=== PATIENT | female | born 1950 | race Caucasian/White ===

== ENCOUNTER 2025-03-19 07:34 | Outpatient (OUT) | payer OTHER, SELFPAY ==
--- OUTSIDE RECORDS SUMMARY | 2025-03-19 07:39 | XMS_ITS | Clinical Summary ---
Author Organization [facility] Address [address] [place] [address] Care Team Providers Care Brick Off Bearer Name Role Phone Thom Loredo MD Primary Care Provider [phone] Social History Tobacco Use Types Packs/Day Years Used Date Smoking Tobacco: Never Assessed Comments Unknown Sex and Gender Information Value Date Recorded Sex Assigned at Not on file Legal Sex Female 8:28 PM EDT Gender Identity Not on file Sexual Orientation Not on file Last Filed Vital Signs Vital Sign Reading Time Taken Comments Blood Pressure - - Pulse - - Temperature - - Respiratory Rate - - Oxygen Saturation - - Inhaled Oxygen Concentration - - Weight 68 kg (150 lb) 03/23/2019 12:00 PM EDT Height 162.6 cm (5' 4 ) 03/23/2019 12:00 PM EDT Body Mass Index 25.75 03/23/2019 12:00 PM EDT Plan of Treatment Not on file Care Teams Brick Off Bearer Relationship Specialty Start Date End Date Thom Loredo MD [address] [place] [id number] PCP - General Family Medicine 11/10/22
[2025-03-19 08:33] LABS: Hematocrit 45.0 % (36.0-48.0); Hemoglobin 15.0 g/dL (12.0-16.0); Immature Granulocytes Abs Auto 0.06 10^3/uL (0.00-0.03); Immature Granulocytes Pct Auto 0.4 % (0.0-0.5); Lymphocytes Absolute Auto 3.7 10^3/uL (1.2-3.8); Mean Corpuscular HGB Conc 33.3 g/dL (29.9-35.2); Mean Corpuscular Hemoglobin 30.4 pg (26.7-34.0); Mean Corpuscular Volume 91.3 fL (81.0-99.0); Platelet Count 352 10^3/uL (150-450); Red Blood Count 4.93 10^6/uL (4.20-5.40); White Blood Count 14.4 10^3/uL (4.0-11.0)
[2025-03-19 09:41] LABS: Alanine Aminotransferase 22 U/L (14-59); Albumin Globulin Ratio 0.9; Albumin Level 3.7 g/dL (3.4-5.0); Alkaline Phosphatase 109 U/L (46-116); Anion Gap 12.4; Aspartate Amino Transferase 14 U/L (15-37); Blood Urea Nitrogen 30.0 mg/dL (7.0-18.0); Calcium 9.4 mg/dL (8.5-10.1); Carbon Dioxide 26.5 mmol/L (21.0-32.0); Chloride 107 mmol/L (98-107); Cholesterol 191 mg/dL (<=200); Estimated GFR (African America 58 (>=60 mL/min/1.73m^2); Estimated GFR (Non-African Ame 48 (>=60 mL/min/1.73m^2); Globulin 4.3 g/dL; Glucose 102 mg/dL (74-106); HDL Cholesterol 68 mg/dL (40-60); Potassium 3.9 mmol/L (3.5-5.1); Sodium 142 mmol/L (136-145); Total Protein 8.0 g/dL (6.4-8.2); Triglycerides 75 mg/dL (<=150); VLDL CHOLESTEROL 15.0 mg/dL
== END 2025-03-19 07:35 | disposition home or self-care (01) ==
LOC: RAD 07:37
PROVIDERS: PCP Nurse Practitioner Family; Visit Provider Nurse Practitioner Family
DX: Z00.00 Encounter for general adult medical examination without abnormal findings (principal); Z78.0 Asymptomatic menopausal state; Z13.820 Encounter for screening for osteoporosis; Z79.899 Other long term (current) drug therapy; R03.0 Elevated blood-pressure reading, without diagnosis of hypertension
CPT/HCPCS: 36415; 77080; 80053; 80061; 85025

== ENCOUNTER 2025-03-28 13:16 | Outpatient (OUT) | payer OTHER, SELFPAY ==
--- NOTE | 2025-03-28 14:15 | P.CN_ITS ---
Consult Note: HPI Data of Consult Patient: known to practice within the last 3 years Requesting Physician: Germaine Akhtar NP Primary Care Provider: KARO WILSON Consult Narrative Reason for consult: new pt low back pain Narrative: Heidi walters pleasant 74 year old female presents for evaluation of chronic moderate to severe low back pain >5 years without injury/cause. Patient noting 100% pain in low back, 0% in legs. Pain today 4/10 increasing to 10/10 at times with standing, walking. Pain significantly improved with sitting. Has been engaged in provider guided HEP and yoga daily for at least 15 minutes greater than 6 weeks without improvement. No recent imaging. Has failed oral steroids, tylenol, ibuprofen. cc:: CC: Germaine Akhtar NP Review of Systems ROS Musculoskeletal Reports: back pain; Denies: extremity pain Meds Home Medications and Allergies Home Medications ?Medication ?Instructions ?Recorded ?Confirmed ?Type baclofen 5 mg tablet 5 mg PO BID 03/28/25 5 History Allergies Allergy/AdvReac Type Severity Reaction Status Date / Time codeine Allergy Unknown Vomiting Verified 03/28/25 14:33 Exam Constitutional Documenting provider has reviewed patient's vital signs: yes Common normals: no apparent distress, oriented x3, healthy appearing, alert and well nourished General appearance: cooperative HENMT Common normals: normocephalic, hearing grossly normal bilaterally and moist oral mucous membranes Head and scalp: normocephalic Eye Common normals: PERRL Pupil: PERRL Neck & C-Spine Common normals: full ROM General: normal visual inspection Chest Common normals: inspection of chest normal Respiratory Common normals: normal respiratory effort, no retractions and no use of accessory muscles Back & Pelvis Lumbar spine/lower back: ROM limited, pain with ROM, lumbar spinal tenderness and straight leg raise negative bilaterally Sacroiliac joints: SI joint(s) abnormal Other: left > right positive maryse(patricks), gaenslens, thigh thrust, compression test strength 5/5 in BLE Neuro Common normals: oriented x3 Sensorium/orientation: alert Psych Common normals: mental status grossly normal, thought process normal, cooperative, affect normal, speech normal and activity/motor behavior normal Speech: normal speech Thought process: normal thought process Results Additional Findings Additional findings: If on a controlled substance or opioids, I have checked an [place] report on this patient and there are no aberrancies noted in the prescribing history.??If on a controlled substance or opioid a drug screen was completed and reviewed within the last year, and if there has not been a drug screen completed we ordered one today to monitor higher risk, state monitored pain medication use. As part of providing excellent, safe, comprehensive care, the following was completed at our patient's visit: 1. A medication reconciliation and review to ensure accurate knowledge of current/active medications, including asking our patients to inform us about any [id number]-[id number] medications or herbal remedies/nutritional supplements/alternative remedies. 2. A review to specifically ensure our patients have had annual screening for screening for depression, screening for tobacco use, and screening for unhealthy alcohol use. For concerning screenings had a discussion with the patient, provided patient education, and recommended follow-up with primary care provider when appropriate. If patient noted with a risk of falling, they received education on strength, gait, and balance training to prevent future risk of falling. Portions of this note may have been carried over from the previous visit and updated as appropriate. Please note this office utilizes paper charting in addition to the electronic medical record. A list of current medications, vitals, and PMH is available th [facility] as the clinical staff outside of myself do not have access to [employer] charting during the clinic day operations. As part of providing quality comprehensive care the current medications, vitals, and PMH were reviewed in the paper chart. 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 Patient has completed >6 weeks of guided home exercise program and/or formal physical therapy program without relief of their symptoms.? The Oswestry Disability Index was completed, and the patient scored a 32%.? Update lumbar xray with flexion to assess low back pain and SIJ pain update lumbar MRI without contrast to assess lumbar DDD, lumbar stenosis with NC start baclofen 5-10mg BID PRN pain/spasms continue HEP as tolerated f/u to review imaging
== END 2025-03-28 13:17 | disposition home or self-care (01) ==
LOC: PM 13:17
PROVIDERS: PCP Nurse Practitioner Family; Visit Provider Nurse Practitioner
DX: M48.062 Spinal stenosis, lumbar region with neurogenic claudication (principal); M46.1 Sacroiliitis, not elsewhere classified; M47.816 Spondylosis without myelopathy or radiculopathy, lumbar region; M79.18 Myalgia, other site; M51.360 Other intervertebral disc degeneration, lumbar region with discogenic back pain only
CPT/HCPCS: 72114; G0463

== ENCOUNTER 2025-03-28 14:27 | Outpatient (OUT) | payer OTHER, SELFPAY ==
--- OUTSIDE RECORDS SUMMARY | 2025-03-28 14:31 | XMS_ITS | Clinical Summary ---
Author Organization [facility] Address [address] [place] [address] Care Team Providers Care Shoe Repairman Name Role Phone Thom Loredo MD Primary Care Provider [phone] Social History Tobacco Use Types Packs/Day Years [...] of Treatment Not on file Care Teams Shoe Repairman Relationship Specialty Start Date End Date Thom Loredo MD [address] [place] [id number] PCP - General Family Medicine 11/10/22
--- NOTE | 2025-03-28 14:34 | XR_ITS ---
The [place] [id number] Patient Name: SANTA CHAUDHARI MRN: [id number] date: 1950 Sex: F Assigned Patient Location: [facility] Current Patient Location: [facility] Accession/Order Number: [id number] Exam Date: 03/28/2025 14:44 Report Date: 03/28/2025 17:05 At the request of: JHONATAN MCNEILL NP Procedure: XR lumbar spine 6V w bending XR lumbar spine 6V w bending 03/28/2025 2:53 PM SIGNS AND SYMPTOMS: Lumbar Degenerative Disc Disease, Sacroiliitis, Spondylosis PROTOCOLS: Frontal, lateral, and oblique radiographs of the lumbar spine COMPARISON: None FINDINGS: There is a dextro convex curvature of the lumbar spine. There is moderate severe disc height loss at L3-L4 and L4-5. There is severe disc height loss at L5-S1. There is anterior osteophyte formation. There is facet hypertrophy throughout. There is 7 mm of anterolisthesis of L4 upon L5. Flexion and extension view show no pathologic movement. Degenerative changes are noted in the sacroiliac joints, right greater than left. Atherosclerotic changes are noted in the abdominal aorta. XR/XR lumbar spine 6V w bending IMPRESSION: No fracture. There is 7 mm of anterolisthesis of L4 upon L5 without pathologic movement on flexion or extension. Severe multilevel degenerative change is noted in the lumbar spine as above. Impression dictated by: Miguel Angel Hyde M.D. 03/28/2025 5:05 PM Dictation Location: [place] [address] Electronically authenticated by: [id number] Y Date: 03/28/2025 17:05
== END 2025-03-28 14:28 | disposition home or self-care (01) ==
LOC: RAD 14:29
PROVIDERS: PCP Nurse Practitioner Family; Visit Provider Nurse Practitioner
DX: M51.360 Other intervertebral disc degeneration, lumbar region with discogenic back pain only (principal); M46.1 Sacroiliitis, not elsewhere classified; M47.816 Spondylosis without myelopathy or radiculopathy, lumbar region
CPT/HCPCS: 72114

== ENCOUNTER 2025-04-03 14:13 | Outpatient (OUT) | payer OTHER, SELFPAY ==
--- NOTE | 2025-04-03 14:17 | MR_ITS ---
The [address] [address] Patient Name: SANTA CHAUDHARI MRN: [id number] date: 1950 Sex: F Assigned Patient Location: MRI Current Patient Location: MRI Accession/Order Number: [id number] Exam Date: 04/03/2025 14:30 Report Date: 04/03/2025 16:05 At the request of: JHONATAN MCNEILL NP Procedure: MR lumbar spine wo con MR lumbar spine wo con 04/03/2025 3:01 PM SIGNS AND SYMPTOMS: Neurogenic claudication, low back pain radiating into lower extremities PROTOCOL: Multiplanar multisequence MR images of the lumbar spine without IV contrast COMPARISON: 03/28/2025 FINDINGS: Facet hypertrophy contributes to 8 mm of anterolisthesis of L4 upon L5. The bones are otherwise in anatomic alignment. There is preservation of vertebral body heights. There is moderate to severe disc height loss throughout the lumbar spine. There is Modic type I endplate edema at L4-L5 and L3-L4. There is Modic type II fatty endplate degenerative change throughout otherwise. Schmorl's nodes are noted in the endplates at T11, T12, L1, L2-L3, and L4. The conus terminates at the superior endplate of the L1 vertebral body level. No epidural or paraspinous fluid collection is appreciated. There is a simple cyst in the left renal cortex requiring no further follow-up. Stones are present in the gallbladder lumen. At T12-L1: There is a broad-based disc bulge with a right foraminal disc protrusion and endplate osteophyte formation. There is facet hypertrophy and ligament flavum thickening. There is moderate spinal canal narrowing with severe right and moderate left neural foraminal narrowing. At L1-L2: There is a broad-based disc bulge with facet hypertrophy and ligamentum flavum thickening contributing to moderate to severe spinal canal stenosis. There is mild to moderate bilateral neural foraminal narrowing. At L2-L3: There is a circumferential disc bulge with facet hypertrophy and ligamentum flavum thickening. There is moderate spinal canal narrowing with moderate left and mild right neural foraminal narrowing. At L3-L4: There is a circumferential disc bulge with facet hypertrophy and ligamentum flavum thickening and stranding to moderate to severe spinal canal narrowing. There is moderate severe left and moderate right neural foraminal narrowing. At L4-L5: There is 8 mm of anterolisthesis of L4 upon L5 secondary to facet hypertrophy. There is ligamentum flavum thickening. There is a circumferential disc bulge with endplate osteophyte formation. There is severe spinal canal stenosis with mass effect on the traversing nerve roots of the cauda equina. There is moderate to severe bilateral neural foraminal narrowing. At L5-S1: There is a broad-based disc bulge with facet hypertrophy. There is partial sacralization of the right L5 transverse process with the sacral ala with pseudoarticulation contributing to severe right S1 foraminal stenosis and mass effect on the right S1 nerve roots. There is mild spinal canal narrowing with mild left neural foraminal narrowing and moderate to severe right neural foraminal narrowing. MR/MR lumbar spine wo con IMPRESSION: At L4-L5: There is 8 mm of anterolisthesis of L4 upon L5 secondary to facet hypertrophy. There is ligamentum flavum thickening. There is a circumferential disc bulge with endplate osteophyte formation. There is severe spinal canal stenosis with mass effect on the traversing nerve roots of the cauda equina. There is moderate to severe bilateral neural foraminal narrowing. At L5-S1: There is a broad-based disc bulge with facet hypertrophy. There is partial sacralization of the right L5 transverse process with the sacral ala with pseudoarticulation contributing to severe right S1 foraminal stenosis and mass effect on the right S1 nerve roots. There is mild spinal canal narrowing with mild left neural foraminal narrowing and moderate to severe right neural foraminal narrowing. Additional significant degenerative changes are noted as described above. Impression dictated by: Miguel Angel Hyde M.D. 04/03/2025 4:05 PM Dictation Location: [place] [address] Electronically authenticated by: [id number] Y Date: 04/03/2025 16:05
== END 2025-04-03 14:14 | disposition home or self-care (01) ==
LOC: MRI 14:13
PROVIDERS: PCP Nurse Practitioner Family; Visit Provider Nurse Practitioner
DX: M48.062 Spinal stenosis, lumbar region with neurogenic claudication (principal); M51.360 Other intervertebral disc degeneration, lumbar region with discogenic back pain only
CPT/HCPCS: 72148

== ENCOUNTER 2025-04-12 14:08 | Outpatient (OUT) | payer OTHER, SELFPAY ==
--- NOTE | 2025-04-12 14:21 | PM.CN ---
Consult Note: HPI Data of Consult Patient: known to practice within the last 3 years Consult date: 04/12/25 Requesting Physician: Germaine Akhtar NP Primary Care Provider: KARO WILSON Consult Narrative Reason for consult: low back pain Narrative: Heidi walters pleasant 74 year old female presents for evaluation of chronic moderate to severe low back pain >5 years without injury/cause. Patient noting 100% pain in low back, 0% in legs. Pain today 5/10 sharp increasing to 10/10 at times with standing, walking. Pain significantly improved with sitting. Has been engaged in provider guided HEP and yoga daily for at least 15 minutes greater than 6 weeks without improvement. Has failed oral steroids, tylenol, ibuprofen. notes relief with baclofen, has been taking 20mg HS without side effects. recently underwent lumbar MRI with results below. cc:: CC: Germaine Akhtar NP Review of Systems ROS Musculoskeletal Reports: back pain; Denies: extremity pain Meds Home Medications and Allergies Home Medications ?Medication ?Instructions ?Recorded ?Confirmed ?Type baclofen 5 mg tablet 5 mg PO BID 03/28/25 03/28/25 History Allergies Allergy/AdvReac Type Severity Reaction Status Date / Time codeine Allergy Unknown Vomiting Verified 03/28/25 14:33 Exam Constitutional Documenting provider has reviewed patient's vital signs: yes Common normals: no apparent distress, oriented x3, healthy appearing, alert and well nourished General appearance: cooperative HENPR Common normals: normocephalic, hearing grossly normal bilaterally and moist oral mucous membranes Head and scalp: normocephalic Eye Common normals: PERRL Pupil: PERRL Neck & C-Spine Common normals: full ROM General: normal visual inspection Chest Common normals: inspection of chest normal Respiratory Common normals: normal respiratory effort, no retractions and no use of accessory muscles Back & Pelvis Lumbar spine/lower back: ROM limited, pain with ROM, lumbar spinal tenderness and straight leg raise negative bilaterally Sacroiliac joints: SI joint(s) abnormal Other: left > right positive maryse(patricks), gaenslens, thigh thrust, compression test strength 5/5 in BLE sensation intact BLE Neuro Common normals: oriented x3 Sensorium/orientation: alert Psych Common normals: mental status grossly normal, thought process normal, cooperative, affect normal, speech normal and activity/motor behavior normal Speech: normal speech Thought process: normal thought process Results Imaging lumbar mri: Attestation: I have reviewed the pertinent imaging results. Additional Findings Additional findings: Facet hypertrophy contributes to 8 mm of anterolisthesis of L4 upon L5. The bones are otherwise in anatomic alignment. There is preservation of vertebral body heights. There is moderate to severe disc height loss throughout the lumbar spine. There is Modic type I endplate edema at L4-L5 and L3-L4. There is Modic type II fatty endplate degenerative change throughout otherwise. Schmorl's nodes are noted in the endplates at T11, T12, L1, L2-L3, and L4. The conus terminates at the superior endplate of the L1 vertebral body level. No epidural or paraspinous fluid collection is appreciated. There is a simple cyst in the left renal cortex requiring no further follow-up. Stones are present in the gallbladder lumen. At T12-L1: There is a broad-based disc bulge with a right foraminal disc protrusion and endplate osteophyte formation. There is facet hypertrophy and ligament flavum thickening. There is moderate spinal canal narrowing with severe right and moderate left neural foraminal narrowing. At L1-L2: There is a broad-based disc bulge with facet hypertrophy and ligamentum flavum thickening contributing to moderate to severe spinal canal stenosis. There is mild to moderate bilateral neural foraminal narrowing. At L2-L3: There is a circumferential disc bulge with facet hypertrophy and ligamentum flavum thickening. There is moderate spinal canal narrowing with moderate left and mild right neural foraminal narrowing. At L3-L4: There is a circumferential disc bulge with facet hypertrophy and ligamentum flavum thickening and stranding to moderate to severe spinal canal narrowing. There is moderate severe left and moderate right neural foraminal narrowing. At L4-L5: There is 8 mm of anterolisthesis of L4 upon L5 secondary to facet hypertrophy. There is ligamentum flavum thickening. There is a circumferential disc bulge with endplate osteophyte formation. There is severe spinal canal stenosis with mass effect on the traversing nerve roots of the cauda equina. There is moderate to severe bilateral neural foraminal narrowing. At L5-S1: There is a broad-based disc bulge with facet hypertrophy. There is partial sacralization of the right L5 transverse process with the sacral ala with pseudoarticulation contributing to severe right S1 foraminal stenosis and mass effect on the right S1 nerve roots. There is mild spinal canal narrowing with mild left neural foraminal narrowing and moderate to severe right neural foraminal narrowing. 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 Patient has completed >6 weeks of guided home exercise program and/or formal physical therapy program without relief of their symptoms.? The Oswestry Disability Index was completed, and the patient scored a 24%.? lumbar MRI and xray reviewed with pt. I expressed my concerns that if we proceed with interventional therapy we may worsen her pain/functional ability as she is doing very well for her current condition. will refer to NS to establish care, will likely not be a surgical candidate at this time based on pain control/functional ability. we briefly discussed scs as an alternative to treat pain related to lumbar stenosis as well as ddd and vertebrogenic pain but this is not recommended at this time. pt would like to trial medication therapy further at this time. increase baclofen 10mg BID PRN and 20mg HS PRN pain/spasms. risks vs benefits reviewed. f/u 6 weeks to evaluate plan of care, sooner if needed
== END 2025-04-12 14:09 | disposition home or self-care (01) ==
LOC: PM 14:09
PROVIDERS: PCP Nurse Practitioner Family; Visit Provider Nurse Practitioner
DX: M51.360 Other intervertebral disc degeneration, lumbar region with discogenic back pain only (principal); M48.062 Spinal stenosis, lumbar region with neurogenic claudication; M46.1 Sacroiliitis, not elsewhere classified; M79.18 Myalgia, other site; M47.816 Spondylosis without myelopathy or radiculopathy, lumbar region
CPT/HCPCS: G0463

== ENCOUNTER 2025-05-16 11:26 | Outpatient (OUT) | payer OTHER, SELFPAY ==
--- OUTSIDE RECORDS SUMMARY | 2025-05-15 04:04 | XMS_ITS | Continuity of Care Document ---
Author Organization [facility] Address [address] [place] [address] Phone Care Team Providers Care Field Seismologist Name Role Phone Gina Raphael APRN Primary Care Provider Gina Raphael APRN Attending Provider Enrike Belle MD Attending Provider [phone] Care Teams Patient Care Team Team Status: Active Member Role/Relationship Status Dates Gina Raphael APRN SURVEILLANCE SENSOR OPERATOR-C Primary Care Provider Active Visit Care Team Team Status: Inactive Member Role/Relationship Status Dates Gina Raphael APRN SURVEILLANCE SENSOR OPERATOR-C Primary Care Provider Active Start: March 122024 End: March 12, 2025Gina Raphael APRN SURVEILLANCE SENSOR OPERATOR-CAttending ProviderActive Start: March 12, 2025 End: March 12, 2025 Visit Care Team Team Status: Active Member Role/Relationship Status Dates Gina Raphael APRN SURVEILLANCE SENSOR OPERATOR-C Primary Care Provider Active Start: March 052024 Gina Raphael APRN SURVEILLANCE SENSOR OPERATOR-CAttending ProviderActiveStart: March 19, 2025 Patient Care Team Team Status: Inactive Member Role/Relationship Status Dates Gina Raphael APRN SURVEILLANCE SENSOR OPERATOR-C Primary Care Provider Active Start: May 152024 End: May 15, 2025Denisa Candelario ProviderActiveStart: May 15, 2025 End: May 15, 2025 Chief Complaint and Reason for Visit Chief Complaint Admit Date Wellness March 12, 2025 10:57am lumbar stenosis May 15, 2025 7:59am Reason for Visit Admit Date Degenerative disc disease March 12, 2025 10:57am Elevated blood pressure reading Septembe r 2024 10:57am Medicare annual wellness visit, subseque nt March 12, 2025 10:57am Medication management March 12 10:57am Obesity (BMI 30.0-34.9) March 12 025 10:57am Post-menopausal March 12, 2025 10:57am Sciatica of right side March 12 10:57am Screening for osteoporosis March 10:57am Allergies, Adverse Reactions, Alerts Allergen Type Severity Reaction Last Updated Verified Status Comments codeine Allergy Unknown Vomiting May 15, 2025 8:12am Yes Active This patient does not appear to be allergic to Albuterol. Social History Smoking Status Status Start Date End Date Date of Observa tion Never smoked tobacco (finding) December 27, 2023 2:02pm Observation Status Observation Response Date of Response Legal Sex Female (finding) [facility] Family History Relationship Condition Age at Onset Recorded Date/T niles Not Specified No pertinent family history Unknown brotherHistory of strokeUnknownHeart diseaseUnknownDeceasedUnknownfatherHeart diseaseUnknownDeceasedUnknownfamily memberDeceasedUnknownmotherFamily history of mental disorderUnknownHistory of strokeUnknownDeceasedUnknownsisterHeart disease UnknownHistory of strokeUnknownDeceasedUnknown Problems Active Problems Problem Diagnosis/Recorded Date Onset Date Stat us Sciatica of right side December 27, 2023 1:30pm Unknown Active Medicare annual wellness vis it, subsequent January 19, 2024 10:57am Unknown Active Screening for osteoporosis March 12, 2025 12:12pm Unknown Active Elevated blood pressure reading January 19, 2024 2:19pm Unknown Active Medication management March 12, 2025 10:23am Unkn own Active Post-menopausal March 12, 2025 12:12pm Unknown Active Obesity (BMI 30.0-34.9) January 19, 2024 2:17pm Unknown Active Degenerative disc disease January 19, 2024 10:42am Unkn own Active CKD stage 3a, GFR 45-59 ml/min March 20, 2025 9: 12am Unknown Active Screening for breast cancer January 19, 2024 2:17pm Unk nown Active Inactive/Resolved Problems Problem Diagnosis/Recorded Date Onset Date Stat Acute kidney injury August 03, 2018 9:26pm Unknown Resolved DVT (deep venous thrombosis) August 03, 2018 9:25pm Unknown Resolved Positive colorectal cancer s creening using Cologuard test April 19, 2019 8:24am Unknown Resolved Pulmonary embolism August 03, 2018 9:26pm Unknown Resolved Medications Medication Status Dose Units Route Directions Qty Days Refills S tart Date Stop Date End Date Reason(s) Instructions Adherence Tizanidine 2 mg tablet Discontinued 2 MG PO Every 8 hours a s needed for muscle spasticity 90 30 0 January 26, 2024 11:00pm March 12, 2025 10:11amSciatica of right side Sciatica, right sideMay take 1-2 tabs as needed every 8 hoursMeloxicam 15 mg eizwniXsqzhcspnxjh30ZJUXKqffo73227Wvpiut 2023 2:29pmSeptember 2023 10:45amDegeneration of intervertebral discMeloxicam 15 mg tabletDiscontinued0 .ROUTE.DXYKYIG510Vbjazwbys 2023 10:45amMarch 2024 7:50amDegeneration of intervertebral discTAKE 1 TABLET BY MOUTH EVERY DAY FOR 30 DAYSMeloxicam 15 mg tabletDiscontinued0.ROUTE.[address] 2024 7:50amSeptember 2024 10:30amDegeneration of intervertebral discTAKE 1 TABLET BY MOUTH EVERY DAY Meloxicam 15 mg tabletDiscontinued0.ROUTE.CBXWMDT648Mmimnxbdt 2024 10:30am March 12, 2025 10:32amDegeneration of intervertebral discTAKE 1 TABLET BY MOUTH EVERY DAYAcetaminophen (Tylenol Extra Strength) 500 mg TabletDiscontinued 144RKRTC8P as needed for PainJanuary 2018 12:00amJanuary 2018 6:24pm Oxycodone-Acetaminophen 5-325 mg flwnplIhxwdwqhhrll3FCMERQ8U as needed for Pain August 03, 2018 12:00amOctober 2018 12:03pmRivaroxaban (Xarelto) 15 mg (42)- 20 mg (9) tablets,dose lwhyPxtxaaldipgh9ORzla package wayicditsg484Qvofbvq 2018 12:00amOctober 2018 12:03pmPO PER PKG DIR must administer with evening meal; continue thereafter 20mg daily for a total of 3 monthsMeloxicam 7.5 mg tabletDiscontinued7.8BUHCPedre59023Hguk 2023 11:00pmAugust 2023 2:29pmDegeneration of intervertebral discMethylprednisolone (Medrol ([place])) 4 mg tablets,dose ofmdDyvqivflrwjd3VNufx package qjumuvxhqa232Esnzlsjza 2024 11:00pmNovember 2024 8:12amDegeneration of intervertebral disc Sciatica of right side Other intervertebral disc degeneration, lumbar region Sciatica, right sidePO PER PKG DIRBaclofen 10 mg hvuvhgLvubyy04ZYHBPimex daily May 15, 2025 12:00amComplies with drug therapyMethylprednisolone (Medrol ([place])) 4 mg tablets,dose iqliWhyedfnrtbuw3WQlqf package apatdouyia1193Maoz 2023 11:00pmJuly 2023 10:19amSciatica of right side Sciatica, right sidePO PER PKG DIRTizanidine 2 mg thjlljRapyeirrebgj9ABBODdqmn 8 hours as needed for muscle doivvuvwoz73692Lxrh 2023 11:00pmJuly 2023 10:22amSciatica of right side Sciatica, right side Medical Equipment Device Date Implanted Device Details ANCHOR MENISCAL CINCH July 14, 2018 Relevant Diagnostic Tests and/or Laboratory Data Laboratory Results Test Collection Date/Time Result Date/Time Result Interpretation Reference Range Result Comment Performing Site Cholesterol/HDL Ratio March 19, 2025 7:27am Sept ember 2024 7:27am 2.8 3.3 - 4.4 LOW RISK4.4 - 7.1 AVERAGE RISK7.1 - 11.0 MODERATE RISK>11.0 HIGH RISK Anion GapSeptember 2024 7:27amSeptember 2024 7:27am12.4Basophils # (Auto)March 19, 2025 7:27amSept2024 7:27am0.1 10 3/uL0.0-0.1 Cholesterol LevelSeptember 2024 7:27amSept2024 7:57kf385 mg/dL <=200Albumin/Globulin RatioSeptember 2024 7:27amSept2024 7:27am0.9Basophils (%) (Auto)March 19, 2025 7:27amSept2024 7:27am0.8 %0.2-2.0HDL CholesterolSept2024 7:27amSept2024 7:27am68 mg/dLAbove high dvkpee00-07> or =60 mg/dl - LOW CARDIOVASCULAR RISK<40 mg/dl - HIGH CARDIOVASCULAR RISKAlbuminSeptember 2024 7:27amSept2024 7:27am3.7 g/dL3.4-5.0Eosinophils # (Auto)March 19, 2025 7:27am March 19, 2025 7:27am0.2 10 3/uL0.0-0.7LDL Cholesterol, Calculated March 19, 2025 7:amSept2024 7:79xp181.0 mg/dL<100 mg/dl TKIVYZK425-431 mg/dl NEAR OR ABOVE HPNCVDP264-165 mg/dl BORDERLINE WOIG659-795 mg/dl HIGH>190 mg/dl VERY HIGHAlkaline PhosphataseSept2024 7:27am March 19, 2025 7:81fh631 U/E16-777Osossnhgnat (%) (Auto)March 19, 2025 7:27amSept2024 7:27am1.2 %0.9-7.0Triglycerides LevelSept2024 7:27amSept2024 7:27am75 mg/dL<=150Alanine Aminotransferase (ALT/SGPT)March 19, 2025 7:27amSept2024 7:27am22 U/D99-54EjcytskgxoTicvxuhrd 15th, 2025 7:27amSept2024 7:27am45.0 %36.0-48.0VLDL CholesterolSeptember 2024 7:27amSeptember 2024 7:27am15.0 mg/dLAspartate Amino Transf (AST/SGOT)March 19, 2025 7:27amSeptember 2024 7:27am14 U/LBelow low qtqlig65-06TgbovfvaikRboceezwz 2024 7:27amSeptember 2024 7:27am15.0 g/dL12.0-16.0BUN/Creatinine RatioSeptember 2024 7:27amSeptember 2024 7:27am27.3Immature Granulocyte # (Auto)March 19, 2025 7:amSeptember 2024 7:27am0.06 10 3/uLAbove high normal0.00-0.03Blood Urea NitrogenSeptember 2024 7:am March 19, 2025 7:27am30.0 mg/dLAbove high normal7.0-18.0Immature Granulocyte % (Auto)March 19, 2025 7:amSeptember 2024 7:27am0.4 % 0.0-0.5Calcium LevelSeptember 2024 7:27amSeptember 2024 7:27am9.4 mg/dL8.5-10.1Lymphocytes # (Auto)March 19, 2025 7:amSeptember 2024 7:27am3.7 10 3/uL1.2-3.8Chloride LevelSeptember 2024 7:27amSeptember 2024 7:20ad484 mmol/U93-412Xvpgkgcqkro (%) (Auto)March 19, 2025 7:27am March 19, 2025 7:27am25.9 %20.5-60.0Carbon Dioxide LevelSeptember 2024 7:27amSeptember 2024 7:27am26.5 mmol/L21.0-32.0Mean Corpuscular HemoglobinSeptember 2024 7:27amSept2024 7:27am30.4 pg26.7-34.0 CreatinineSept2024 7:27amSept2024 7:27am1.10 mg/dLAbove high normal0.55-1.02Mean Corpuscular Hemoglobin ConcentSeptember 2024 7:27amSept2024 7:27am33.3 g/dL29.9-35.2Estimated GFR ()March 19, 2025 7:27amSept2024 7:35az51Vdvqe low normal>=60 mL/min/1.73m 2Mean Corpuscular VolumeSept2024 7:27am March 19, 2025 7:27am91.3 fL81.0-99.0Estimated GFR (Non- March 19, 2025 7:amSept2024 7:86wj79Mzjvz low normal>=60 mL/min/1.73m 2Monocytes # (Auto)March 19, 2025 7:amSept2024 7:27am1.0 10 3/uLAbove high normal0.3-0.8GlobulinSept2024 7:27am March 19, 2025 7:27am4.3 g/dLMonocytes (%) (Auto)March 19, 2025 7:amSept2024 7:27am6.7 %1.7-12.0Glucose LevelSeptember 2024 7:27amSeptember 2024 7:71up735 mg/cY11-820Ixpk Platelet VolumeSeptember 2024 7:27amSept2024 7:27am9.9 fL9.5-13.5Potassium Level March 19, 2025 7:27amSept2024 7:27am3.9 mmol/L3.5-5.1 Neutrophils # (Auto)March 19, 2025 7:amSept2024 7:27am9.4 10 3/uLAbove high normal1.4-6.5Sodium LevelSeptember 2024 7:27amSeptember 2024 7:67tg280 mmol/K579-109Xssytvrxvlx (%) (Auto)March 19, 2025 7:amSeptember 2024 7:27am65.0 %43.0-75.0Total BilirubinSept2024 7:amSeptember 2024 7:27am0.3 mg/dL0.2-1.0Platelet CountSept2024 7:amSeptember 2024 7:24vg665 10 3/wH131-658Wpwho Protein March 19, 2025 7:amSept2024 7:27am8.0 g/dL6.4-8.2Red Blood CountSept2024 7:amSept2024 7:27am4.93 10 6/uL4.20-5.40 Red Cell Distribution WidthSept2024 7:27amSept2024 7:27am15.1 %Above high ngxfda53.0-15.0Corrected White Blood CountSept2024 7:amSept2024 7:27am14.4 10 3/uLAbove high normal4.0-11.0 Vital Signs Vital Reading Result Reference Range Collection Date/Time Height 62 [in_i] March 12, 2025 10:22vfVuwpux92.18 kgSept2024 10:09amBody Esrzppqyypo97.7 [degF]97.6-99.0Sept2024 10:09amHeart Rate96 /min 60-100Sept2024 10:09amOxygen saturation by Pulse %95-100 March 12, 2025 10:09amBP Oqdjovdc508 mm[Hg]100-140Sept2024 10:09amBP Zostmcetn92 mm[Hg]60-100Sept2024 10:09amBMI (Body Mass Index)34.7 kg/v8Uvydyodwy2024 10:74glTfgwda26 [in_i]May 15, 2025 8:69ozFcbali59.30 kgNovember 11th, 2025 8:11amBMI (Body Mass Index)34.4 kg/m2 May 15, 2025 8:11am Advance Directives Advance Directive Response Recorded Date/ Time Advance Directives No July 08, 2018 2:58pm Insurance Providers Guarantor Heidi Rivasz Address [address] [address]Gzmarjt Info.Home Phone: Payer Group Member ID Coverage Type Subscriber Relationship to Subscriber Effective Date Expiration Date MMO Retired Id: [id number] L Jillian Id: [id number] [address] [address] Home Phone: Email: [email or web address] L Jillian Id: [id number] [address] [address] Home Phone: Email: [email or web address] [email or web address] L Jillian Id: [id number] [address] [address] Home Phone: Email: [email or web address] Encounters Encounter Location(s) Arrival/Admit Date Discharge/Departure Date Discharge/Departure Disposition Provider(s) Departed Physician/ Provider Office Visit -[facility] March 12, 2025 10:57am March 12, 2025 11:45am Discharged to home care or self care (routine discharge) Gina Raphael APRN CNP Non-patient / Non-visit -[facility] March 19, 2025 8:27am Gina Raphael APRN CNPDeparted Physician/Provider Office Visit-[facility] 2024 7:59amNovember 2024 9:03am Discharged to home care or self care (routine discharge)Enrike Belle MD Recent Diagnosis Onset Date Admit Date Degenerative disc disease Unknown 2024 10:57am Elevated blood pressure reading Unknown March 12, 2025 10:57am Medicare annual wellness visit, subsequent Unkno wn March 12, 2025 10:57am Medication management Unknown March 12, 2025 10:57am Obesity (BMI 30.0-34.9) Unknown Marembe r 2024 10:57am Post-menopausal Unknown March 12, 025 10:57am Sciatica of right side Unknown March 12, 2025 10:57am Screening for osteoporosis Unknown mber 2024 10:57am Assessments Diagnosis Onset Date Resolution Status Admit Date Degenerative disc disease acutept2024 10:57amElevated blood pressure readingacuteMarch 12, 2025 10:57amMedicare annual wellness visit, subsequentacuteMarch 12, 2025 10:57amMedication managementacuteMarch 12, 2025 10:57amObesity (BMI 30.0-34.9)acuteMarch 12, 2025 10:57amPost-menopausalacuteMarch 12, 2025 10:57amSciatica of right sideacuteMarch 12, 2025 10:57amScreening for osteoporosisacuteMarch 12, 2025 10:57am Plan of Treatment Author [facility], 2025 1:24pmPersonalized health advice was given to the beneficiary with a referral, if appropriate, to health education of preventative counseling services or programs aimed at reducing identified risk factors and improving self-management or community-based lifestyle interventions to reduce health risks and promote self-management and wellness, including weight loss, physical activity, smoking cessation, fall prevention and nutrition. A written plan for screenings discussed, including colonoscopy, mammography, flu vaccination, other vaccinations if at risk, routine lab studies, eye exams, glaucoma screening, skin checks, risk factors for medical problems discussed, including BP control, obesity, and need for consistent exercise. Advanced care planning reviewed. Counseling was provided here today - specifically in regard to any positively answered questions as noted above She will get labs completed. Will call with results Discussed further treatment for pain related to the lower back. Will give a steroid to help with inflammation. Take medication as prescribed. Complete all doses of medication, even if sx are no longer present. Pt instructed to take medication with food. Informed pt that medication may make pt feel jittery, hungry and give you extra energy. Medication may also increase blood pressure and increase blood sugar. Pt also advised not to take NSAIDs while using steroids. She did do Meloxicam which is now no longer beneficial. Continue stretching, yoga, and physical therapy exercises. We discussed pain management and she would like to proceed with referral as her quality of life is declining. Patient is advised to work on healthy diet choices and appropriate servings, weight control, regular exercise as directed, reduced fat intake, and salt avoidance. Patient voiced understanding of this and agrees to this plan. Patient blood pressure reading elevated while in the office today. Instructed patient to check blood pressures at home daily. Patient to notify office should SBP > 140 or DBP > 90 consistently. Patient verbalizes understanding and agrees to treatment plan. Patient is postmenopausal and therefore at risk for osteoporosis. Risks and benefits of DEXA scan discussed with patient today. She is due for DEXA scan. Patient is interested in getting a DEXA scan today. DEXA scan ordered today. Future Tests Future scheduled test information is unavailable Pending Tests Test Name Ordered Date Scheduled Date Comprehensive Metabolic Panel March 12 10:23am XR dexa axial skeletonSept2024 12:12pm Future Visits Future appointment information is unavailable Future Procedures Future procedure information is unavailable Future Medications Future medication information is unavailable Patient Instructions Patient instructions are unavailable
--- OUTSIDE RECORDS SUMMARY | 2025-05-16 11:28 | XMS_ITS | Clinical Summary ---
Author Organization [facility] Address [address] [place] [address] Care Team Providers Care Box Closing Machine Operator Name Role Phone Thom Loredo MD Primary Care Provider Social History Tobacco UseTypesPacks/DayYears UsedDateSmoking Tobacco: Never Assessed CommentsUnknownSex and Gender InformationValueDate RecordedSex Assigned at Not on fileLegal WflWinwen78/15/2023 8:28 PM EDTGender IdentityNot on fileSexual OrientationNot on file Last Filed Vital Signs Vital SignReadingTime TakenCommentsBlood Pressure--Pulse--Temperature-- Respiratory Rate--Oxygen Saturation--Inhaled Oxygen Concentration--Uuzovd01 kg (150 lb)03/23/2019 12:00 PM XACCrvyyf601.6 cm (5' 4 )03/23/2019 12:00 PM EDTBody Mass Index25.75003/23/2019 12:00 PM EDT Plan of Treatment Not on file Care Teams Team MemberRelationshipSpecialtyStart DateEnd Date Thom Loredo MD [address] [facility] [address] [place] [address] PCP - GeneralFamily Medicine11/10/22
--- NOTE | 2025-05-16 11:57 | PM.CN ---
Consult Note: HPI Data of Consult Patient: known to practice within the last 3 years Consult date: 05/16/25 Requesting Physician: Germaine Akhtar NP Primary Care Provider: KARO WILSON Consult Narrative Reason for consult: low back pain Narrative: Heidi walters pleasant 74 year old female presents for evaluation of chronic moderate to severe low back pain >5 years without injury/cause. Patient noting 100% pain in low back and hips, 0% in legs. Pain today 10/10 sharp with standing, walking. Pain significantly improved with sitting. Has been engaged in provider guided HEP and yoga daily for at least 15 minutes greater than 6 weeks without improvement. Has failed oral steroids, tylenol, ibuprofen. notes relief with baclofen, has been taking 20mg HS without side effects. recently underwent lumbar MRI with results below. since last visit was evaluated by Dr Belle who recommends pt undergo bilateral SIJ injections. cc:: CC: Germaine Akhtar NP Review of Systems ROS Musculoskeletal Reports: back pain; Denies: extremity pain Meds Home Medications and Allergies Home Medications ?Medication ?Instructions ?Recorded ?Confirmed ?Type baclofen 5 mg tablet 5 mg PO BID 03/28/25 03/28/25 History baclofen 10 mg tablet See Rx Instructions .Route 04/12/25 Rx .COMPLEX #120 tabs Allergies Allergy/AdvReac Type Severity Reaction Status Date / Time codeine Allergy Unknown Vomiting Verified 03/28/25 14:33 Exam Constitutional Documenting provider has reviewed patient's vital signs: yes Common normals: no apparent distress, oriented x3 and alert General appearance: cooperative HENMT Common normals: normocephalic, hearing grossly normal bilaterally and moist oral mucous membranes Head and scalp: normocephalic Eye Common normals: PERRL Pupil: PERRL Neck & C-Spine Common normals: full ROM General: normal visual inspection Chest Common normals: inspection of chest normal Respiratory Common normals: normal respiratory effort, no retractions and no use of accessory muscles Back & Pelvis Lumbar spine/lower back: ROM limited, pain with ROM, lumbar spinal tenderness and straight leg raise negative bilaterally Sacroiliac joints: SI joint(s) abnormal Other: left > right positive maryse(patricks), gaenslens, thigh thrust, compression test strength 5/5 in BLE sensation intact BLE moderate tenderness over bilateral greater trochanteric bursa Neuro Common normals: oriented x3 Sensorium/orientation: alert Psych Common normals: mental status grossly normal, thought process normal, cooperative, affect normal, speech normal and activity/motor behavior normal Speech: normal speech Thought process: normal thought process Results Imaging lumbar mri: Attestation: I have reviewed the pertinent imaging results. Additional Findings Additional findings: If on a controlled substance or opioids, I have checked an [place] report on this patient and there are no aberrancies noted in the prescribing history.??If on a controlled substance or opioid a drug screen was completed and reviewed within the last year, and if there has not been a drug screen completed we ordered one today to monitor higher risk, state monitored pain medication use. As part of providing excellent, safe, comprehensive care, the following was completed at our patient's visit: 1. A medication reconciliation and review to ensure accurate knowledge of current/active medications, including asking our patients to inform us about any dljm-kmn-hlnyhut medications or herbal remedies/nutritional supplements/alternative remedies. 2. A review to specifically ensure our patients have had annual screening for screening for depression, screening for tobacco use, and screening for unhealthy alcohol use. For concerning screenings had a discussion with the patient, provided patient education, and recommended follow-up with primary care provider when appropriate. If patient noted with a risk of falling, they received education on strength, gait, and balance training to prevent future risk of falling. Portions of this note may have been carried over from the previous visit and updated as appropriate. Please note this office utilizes paper charting in addition to the electronic medical record. A list of current medications, vitals, and PMH is available there as the clinical staff outside of myself do not have access to [employer] charting during the clinic day operations. As part of providing quality comprehensive care the current medications, vitals, and PMH were reviewed in the paper chart. Assessment and Plan Assessment and Plan (1) Sacroiliitis: (2) Greater trochanteric bursitis of both hips: (3) Myofascial pain: (4) Lumbar spondylosis: Plan The patient has had over 3 months of moderate to severe low back and SIJ pain with functional impairment and inadequate response to conservative care including NSAIDS (unless there are contraindication such as concurrent blood thinners), multiple oral or topical pain medications, and home exercise program/physical therapy.? Patient has completed >6 weeks of guided home exercise program and/or formal physical therapy program without relief of their symptoms.? The Oswestry Disability Index was completed, and the patient scored a 46%.? bilateral SIJ injection under fluoroscopy bilateral gtb injection with Dr Fry stop baclofen start flexeril 5-10mg tid prn pain/spasms asymptomatic HTN, advised to f/u with PCP for further care. if pt develops chest pain, nausea, vision changes, SOB, headaches she is to go to the ER for evaluation.
== END 2025-05-16 11:27 | disposition home or self-care (01) ==
LOC: PM 11:27
PROVIDERS: PCP Nurse Practitioner Family; Visit Provider Nurse Practitioner
DX: M46.1 Sacroiliitis, not elsewhere classified (principal); M70.62 Trochanteric bursitis, left hip; M70.61 Trochanteric bursitis, right hip; M79.18 Myalgia, other site; M47.816 Spondylosis without myelopathy or radiculopathy, lumbar region
CPT/HCPCS: G0463

== ENCOUNTER 2025-05-28 11:00 | Day surgery (SDC) | payer OTHER, SELFPAY ==
--- OUTSIDE RECORDS SUMMARY | 2025-05-17 09:53 | XMS_ITS | Continuity of Care Document ---
Author Organization [facility] Address [address] [place] [address] Phone Care Team Providers Care Auction Clerk Name Role Phone Gina Raphael APRN Primary Care Provider Gina Raphael APRN Attending Provider Enrike Belle MD Attending Provider Care Teams Patient Care Team Team Status: Active Member Role/Relationship Status Dates Gina Raphael APRN [employer]PER[employer]OR-C Primary Care Provider Active Visit Care Team Team Status: Inactive Member Role/Relationship Status Dates Gina Raphael APRN [employer] SUPERVISOR-C Primary Care Provider Active Start: March 122024 End: March 12, 2025Gina Raphael APRN [employer] SUPERVISOR-CAttending ProviderActive Start: March 12, 2025 End: March 12, 2025 Visit Care Team Team Status: Active Member Role/Relationship Status Dates Gina Raphael APRN [employer] SUPERVISOR-C Primary Care Provider Active Start: March 052024 Gina Raphael APRN [employer] SUPERVISOR-CAttending ProviderActiveStart: March 19, 2025 Visit Care Team Team Status: Inactive Member Role/Relationship Status Dates Gina Raphael APRN [employer] SUPER[employer]-C Primary Care Provider Active Start: May 152024 End: May 15, 2025Denisa Candelario ProviderActiveStart: May 15, 2025 End: May 15, 2025 Patient Care Team Team Status: Inactive Member Role/Relationship Status Dates Gina Raphael APRN [employer] SUPERVISOR-C Primary Care Provider Active Start: May 172024 End: May 17, 2025Gina Raphael APRN [employer] SUPERVISOR-CAttending ProviderActive Start: May 17, 2025 End: May 17, 2025 Chief Complaint and Reason for Visit Chief Complaint Admit Date Wellness March 12, 2025 10:57am lumbar stenosis May 15, 2025 7:59am High BP May 17, 2025 2:06pm Reason for Visit Admit Date Degenerative disc disease March 12, 2025 10:57am Elevated blood pressure reading Septembe r 2024 10:57am Medicare annual wellness visit, subseque nt March 12, 2025 10:57am Medication management March 12 10:57am Obesity (BMI 30.0-34.9) March 12 10:57am Post-menopausal March 12, 2025 10:57am Sciatica of right side March 12 10:57am Screening for osteoporosis March 10:57am Carpal tunnel syndrome, left upper limb May 15, 2025 7:59am Inflammation of both sacroiliac joints N ovember 2024 7:59am Lumbar stenosis without neurogenic sofia ication May 15, 2025 7:59am Allergies, Adverse Reactions, Alerts Allergen Type Severity Reaction Last Updated Verified Status Comments codeine Allergy Unknown Vomiting May 17, 2025 2:09pm Yes Active This patient does not appear to be allergic to Albuterol. Social History Smoking Status Status Start Date End Date Date of Observa tion Never smoked tobacco (finding) December 27, 2023 2:02pm Observation Status Observation Response Date of Response Legal Sex Female (finding) [facility] Family History Relationship Condition Age at Onset Recorded Date/T niles Not Specified No pertinent family history Unknown brotherHistory of strokeUnknownHeart diseaseUnknownDeceasedUnknownfatherHeart diseaseUnknownDeceasedUnknownfamily memberDeceasedUnknownmotherFamily history of mental disorderUnknownHistory of strokeUnknownDeceasedUnknownsisterHeart disease UnknownHistory of strokeUnknownDeceasedUnknown Problems Active Problems Problem Diagnosis/Recorded Date Onset Date Stat Sciatica of right side December 27, 2023 1:30pm Unknown Active Medicare annual wellness vis it, subsequent January 19, 2024 10:57am Unknown Active Screening for osteoporosis March 12, 2025 12:12pm Unknown Active Carpal tunnel syndrome, left upper limb May 15, 2025 9:08am Unknown Active Elevated blood pressure reading January 19, 2024 2:19pm Unknown Active Medication management March 12, 2025 10:23am Unkn own Active Post-menopausal March 12, 2025 12:12pm Unknown Active Obesity (BMI 30.0-34.9) January 19, 2024 2:17pm Unknown Active Inflammation of both sacroiliac joints May 15, 2025 9:07am Unknown Active Degenerative disc disease January 19, 2024 10:42am Unkn own Active CKD stage 3a, GFR 45-59 ml/min March 20, 2025 9: 12am Unknown Active Screening for breast cancer January 19, 2024 2:17pm Unk nown Active Lumbar stenosis without neur ogenic claudication May 15, 2025 9:07am Unknown Active Inactive/Resolved Problems Problem Diagnosis/Recorded Date Onset Date Stat us Acute kidney injury August 03, 2018 9:26pm [...] as needed every 8 hoursMeloxicam 15 mg zdftflHlwenppztgdw38XZDPPrpfh52323Bmobwl 2023 2:29pmSeptember 2023 10:45amDegeneration of intervertebral discMeloxicam 15 mg tabletDiscontinued0 .ROUTE.NAKITRG956Zuibgyvvm 2023 10:45amMarch 2024 7:50amDegeneration of intervertebral discTAKE 1 TABLET BY MOUTH EVERY DAY FOR 30 DAYSMeloxicam 15 mg tabletDiscontinued0.ROUTE.RFLDEIG794Ykawq 2024 7:50amSeptember 2024 10:30amDegeneration of intervertebral discTAKE 1 TABLET BY MOUTH EVERY DAY Meloxicam 15 mg tabletDiscontinued0.ROUTE.DVQMVNQ620Vbfjtmsqv 3rd, 2025 10:30am Michelle 2024 10:32amDegeneration of intervertebral discTAKE 1 TABLET BY MOUTH EVERY DAYAcetaminophen (Tylenol Extra Strength) 500 mg TabletDiscontinued [id number] as needed for PainJanuary 2018 12:00amJanuary 2018 6:24pm Oxycodone-Acetaminophen 5-325 mg ccpzbxZtbxfkamhvym0UGCNWF6P as needed for Pain August 03, 2018 12:00amOctober 2018 12:03pmRivaroxaban (Xarelto) 15 mg (42)- 20 mg (9) tablets,dose jrfzQzrcujwnkmqe9QSzbe package ukfdtnxrsz133Pjspnws 2018 12:00amOctober 2018 12:03pmPO PER PKG DIR must administer with evening meal; continue thereafter 20mg daily for a total of 3 monthsMeloxicam 7.5 mg tabletDiscontinued7.3MQLWEftaw41926Oexu 2023 11:00pmAugust 2023 2:29pmDegeneration of intervertebral discMethylprednisolone (Medrol ([place])) 4 mg tablets,dose bqznKhlucldupwmt3BPype package fjcnvbrjjm234Erzvombkt 7th, 2025 11:00pmNovember 2024 8:12amDegeneration of intervertebral disc Sciatica of right side Other intervertebral disc degeneration, lumbar region Sciatica, right sidePO PER PKG DIRBaclofen 10 mg jlgcyvVrhjsrjppddi96HBCHCtiju dailyMay 15, 2025 12:00amNovember 2024 2:38pmMethylprednisolone (Medrol ([place])) 4 mg tablets,dose tpaoToynurjnufwh5ZGzer package soofycbjuu0456 December 26, 2023 11:00pmJuly 2023 10:19amSciatica of right side Sciatica, right sidePO PER PKG DIRTizanidine 2 mg kpksynDkdpxtxxdebp9ZROHIgdja 8 hours as needed for muscle xhbctrzrvv79806Rkaw 2023 11:00pmJuly 2023 10:22amSciatica of right side [...] 7:27amSeptember 2024 7:27am12.4Basophils # (Auto)March 19, 2025 7:27amSeptember 2024 7:27am0.1 10 3/uL0.0-0.1 Cholesterol LevelSept2024 7:27amSept2024 7:54nm949 mg/dL <=200Albumin/Globulin RatioSept2024 7:27amSept2024 7:27am0.9Basophils (%) (Auto)March 19, 2025 7:27amSeptember 2024 7:27am0.8 %0.2-2.0HDL CholesterolSeptember 2024 7:27amSeptember 2024 7:27am68 mg/dLAbove high -26> or =60 mg/dl - LOW CARDIOVASCULAR RISK<40 mg/dl - HIGH CARDIOVASCULAR RISKAlbuminSeptember 2024 7:27amSeptember 2024 7:27am3.7 g/dL3.4-5.0Eosinophils # (Auto)March 19, 2025 7:27am March 19, 2025 7:27am0.2 10 3/uL0.0-0.7LDL Cholesterol, Calculated March 19, 2025 7:27amSeptember 2024 7:64md716.0 mg/dL<100 mg/dl XUTIFKS945-883 mg/dl NEAR OR ABOVE VRHVQJK306-179 mg/dl BORDERLINE XGSO569-462 mg/dl HIGH>190 mg/dl VERY HIGHAlkaline PhosphataseSeptember 2024 7:27am March 19, 2025 7:68cf746 U/Y64-440Fxbxnkmiurp (%) (Auto)March 19, 2025 7:amSeptember 2024 7:27am1.2 %0.9-7.0Triglycerides LevelSeptember 2024 7:27amSeptember 2024 7:27am75 mg/dL<=150Alanine Aminotransferase (ALT/SGPT)March 19, 2025 7:amSeptember 2024 7:27am22 U/H91-41DwidghnqoaAspnyxwng 2024 7:amSeptember 2024 7:27am45.0 %36.0-48.0VLDL CholesterolSeptember 2024 7:27amSeptember 2024 7:27am15.0 mg/dLAspartate Amino Transf (AST/SGOT)March 19, 2025 7:amSept2024 7:27am14 U/LBelow low -87XfcsnmuaprWkulpzhva 2024 7:27amSeptember 2024 7:27am15.0 g/dL12.0-16.0BUN/Creatinine RatioSeptember 2024 7:amSept2024 7:27am27.3Immature Granulocyte # (Auto)March 19, 2025 7:27amSeptember 2024 7:27am0.06 10 3/uLAbove high normal0.00-0.03Blood Urea NitrogenSeptember 2024 7:27am March 19, 2025 7:27am30.0 mg/dLAbove high normal7.0-18.0Immature Granulocyte % (Auto)March 19, 2025 7:27amSeptember 2024 7:27am0.4 % 0.0-0.5Calcium LevelSeptember 2024 7:27amSeptember 2024 7:27am9.4 mg/dL8.5-10.1Lymphocytes # (Auto)March 19, 2025 7:amSeptember 2024 7:27am3.7 10 3/uL1.2-3.8Chloride LevelSeptember 2024 7:amSeptember 2024 7:88nt556 mmol/T61-003Sazbkjjeoep (%) (Auto)March 19, 2025 7:27am March 19, 2025 7:27am25.9 %20.5-60.0Carbon Dioxide LevelSeptember 2024 7:amSept2024 7:27am26.5 mmol/L21.0-32.0Mean Corpuscular HemoglobinSeptember 2024 7:amSeptember 2024 7:am30.4 pg26.7-34.0 CreatinineSeptember 2024 7:amSeptember 2024 7:27am1.10 mg/dLAbove high normal0.55-1.02Mean Corpuscular Hemoglobin ConcentSeptember 2024 7:amSeptember 2024 7:am33.3 g/dL29.9-35.2Estimated GFR ()March 19, 2025 7:amSeptember 2024 7:22nc69Gwhfu low normal>=60 mL/min/1.73m 2Mean Corpuscular VolumeSeptember 2024 7:27am March 19, 2025 7:am91.3 fL81.0-99.0Estimated GFR (Non- March 19, 2025 7:amSept2024 7:61so89Mghsc low normal>=60 mL/min/1.73m 2Monocytes # (Auto)March 19, 2025 7:amSeptember 2024 7:27am1.0 10 3/uLAbove high normal0.3-0.8GlobulinSeptember 2024 7:27am March 19, 2025 7:27am4.3 g/dLMonocytes (%) (Auto)March 19, 2025 7:amSept2024 7:27am6.7 %1.7-12.0Glucose LevelSept2024 7:amSept2024 7:80cu282 mg/bV71-274Odob Platelet VolumeSept2024 7:amSept2024 7:27am9.9 fL9.5-13.5Potassium Level March 19, 2025 7:amSept2024 7:27am3.9 mmol/L3.5-5.1 Neutrophils # (Auto)March 19, 2025 7:amSept2024 7:27am9.4 10 3/uLAbove high normal1.4-6.5Sodium LevelSept2024 7:amSept2024 7:76le066 mmol/W095-758Zycxwpsubyw (%) (Auto)March 19, 2025 7:amSept2024 7:27am65.0 %43.0-75.0Total BilirubinSept2024 7:amSept2024 7:27am0.3 mg/dL0.2-1.0Platelet CountSeptember 2024 7:amSept2024 7:30nl669 10 3/uN213-942Raofs Protein March 19, 2025 7:amSept2024 7:27am8.0 g/dL6.4-8.2Red Blood CountSeptember 2024 7:amSept2024 7:27am4.93 10 6/uL4.20-5.40 Red Cell Distribution WidthSeptember 2024 7:amSept2024 7:27am15.1 %Above high pocifh56.0-15.0Corrected White Blood CountSeptember 2024 7:27amSept2024 7:27am14.4 10 3/uLAbove high normal4.0-11.0 Vital Signs Vital Reading Result Reference Range Collection Date/Time Height 62 [in_i] March 12, 2025 10:96dvPnsnmt73.18 kgSept2024 10:09amBody Wgzqhcljons88.7 [degF]97.6-99.0March 12, 2025 10:09amHeart Rate96 /min 60-100Se2024 10:09amOxygen saturation by Pulse kucvmmdw81 %95-100 March 12, 2025 10:09amBP Uauyotjc348 mm[Hg]100-140Sept2024 10:09amBP Vkvhtmagu69 mm[Hg]60-100Sept2024 10:09amBMI (Body Mass Index)34.7 kg/e4Avxrziuzm2024 10:04vlXomjlx40 [in_i]May 15, 2025 8:91crVquzaw41.30 kgMay 15, 2025 8:11amBMI (Body Mass Index)34.4 kg/m2 May 15, 2025 8:46prCexgaf15 [in_i]May 17, 2025 2:41gcXomawm50.82 kgMay 17, 2025 2:12pmBody Zwxmsfzipkp37.8 [degF]97.6-99.0May 17, 2025 2:12pmHeart Zuuc181 /ikj16-870SsvhbfpbMay 17, 2025 2:12pmOxygen saturation by Pulse njtrhwra25 %95-100May 17, 2025 2:12pmBP Gcpkgfaa651 mm[Hg] 100-140May 17, 2025 2:37pmBP Oopppktdw93 mm[Hg]60-100May 17, 2025 2:37pmBMI (Body Mass Index)34.2 kg/e7HdbrwguvMay 17, 2025 2:12pm Advance Directives Advance Directive Response Recorded Date/ Time Advance Directives No July 08, 2018 2:58pm Insurance Providers Guarantor Heidi Walsh Address [address] [place] [id number] Info.Home Phone: Payer Group Member ID Coverage Type Subscriber Relationship to Subscriber Effective Date Expiration Date MMO [id number] L Dietz Id: [id number] [address] [place] [address] [place] [address] Home Phone: Email: [email or web address] Encounters Encounter Location(s) Arrival/Admit Date Discharge/Departure Date Discharge/Departure Disposition Provider(s) Departed Physician/ Provider Office Visit -[facility] March 12, 2025 10:57am March 12, 2025 11:45am Discharged to home care or self care (routine discharge) Gina Raphael APRN CNP Non-patient / Non-visit -[facility] March 19, 2025 8:27am Gina Raphael APRN CNPDeparted Physician/Provider [facility], 2025 7:59amNovember 2024 9:03am Discharged to home care or self care (routine discharge)Enrike Belle MD Departed Phys[facility] 2:06pmMay 17, 2025 2:51pmDischarged to home care or self care (routine discharge)Gina Raphael APRN CNP Recent Diagnosis Onset Date Admit Date Degenerative disc disease Unknown 2024 10:57am Elevated blood pressure reading Unknown March 12, 2025 10:57am Medicare annual wellness visit, subsequent Unkno wn March 12, 2025 10:57am Medication management Unknown March 12, 2025 10:57am Obesity (BMI 30.0-34.9) Unknown 2024 10:57am Post-menopausal Unknown March 12, 025 10:57am Sciatica of right side Unknown March 12, 2025 10:57am Screening for osteoporosis Unknown 2024 10:57am Carpal tunnel syndrome, left upper limb Unknown May 15, 2025 7:59am Inflammation of both sacroiliac joints Unknown May 15, 2025 7:59am Lumbar stenosis without neur ogenic claudication Unknown May 15, 2025 7:59am Assessments Diagnosis Onset Date Resolution Status Admit Date Degenerative disc disease acuteSept2024 10:57amElevated blood pressure readingacuteMarch 12, 2025 10:57amMedicare annual wellness visit, subsequentacuteMarch 12, 2025 10:57amMedication managementacuteMarch 12, 2025 10:57amObesity (BMI 30.0-34.9)acuteMarch 12, 2025 10:57amPost-menopausalacuteMarch 12, 2025 10:57amSciatica of right sideacuteMarch 12, 2025 10:57amScreening for osteoporosisacuteMarch 12, 2025 10:57amCarpal tunnel syndrome, left upper limbacuteNov2024 7:59amInflammation of both sacroiliac jointsacute May 15, 2025 7:59amLumbar stenosis without neurogenic claudicationacute May 15, 2025 7:59am Plan of Treatment [facility] 1:24pmPersonalized health advice was given [...] DEXA scan today. DEXA scan ordered today. Author Enrike Belle [facility] 2024 9:11amI independently reviewed the MRI of the lumbar spine and the report showing multiple levels of lumbar stenosis from L1-L5. Also foraminal stenosis. 6 view x-ray of the lumbar spine shows no gross instability DEXA scan shows excellent bone quality. The patient unfortunately has no neurogenic claudication which takes surgery out of our picture. She is able to stand and move about well with no leg symptoms just low back pain and most of that pain is in the sacroiliac region and some in the trochanteric bursa. My recommendation be to consider sacroiliac injections. I would like to see the patient 1 more time I talk to her about looking for neurogenic claudication signs and I will revisit with her 1 more time. She also has left carpal tunnel syndrome which is resulting in some numbness in the left arm and hand and wakes her up multiple times at night and during the day. I am ordering an EMG of the left upper extremity Future Tests Future scheduled test information is unavailable Pending Tests Test Name Ordered Date Scheduled Date Comprehensive Metabolic Panel March 12 10:23am XR dexa axial skeletonSept2024 12:12pm Future Visits Future appointment information is unavailable Future Procedures Procedure Name Ordered Date Scheduled Date NE emg UE LT May 15, 2025 9:08am Future Medications Future medication information is unavailable Patient Instructions Patient instructions are unavailable
--- OUTSIDE RECORDS SUMMARY | 2025-05-28 11:06 | XMS_ITS | Clinical Summary ---
Author Organization [facility] Address [address] [place] [address] Care Team Providers Care Manager Risk Name Role Phone Thom Loredo MD Primary Care Provider [phone] Social History Tobacco UseTypesPacks/DayYears UsedDateSmoking Tobacco: Never Assessed CommentsUnknownSex and Gender InformationValueDate RecordedSex Assigned at Not on fileLegal YthWcpyky35/15/2023 8:28 PM EDTGender IdentityNot on fileSexual OrientationNot on file Last Filed Vital Signs Vital SignReadingTime TakenCommentsBlood Pressure--Pulse--Temperature-- Respiratory Rate--Oxygen Saturation--Inhaled Oxygen Concentration--Ikdodg02 kg (150 lb)03/23/2019 12:00 PM XWQRetbbi106.6 cm (5' 4 )03/23/2019 12:00 PM EDTBody Mass Index25.75003/23/2019 12:00 PM EDT Plan of Treatment Not on file Care Teams Team MemberRelationshipSpecialtyStart DateEnd Date Thom Loredo MD [address] [facility] [address] [place] [address] PCP - GeneralFamily Medicine11/10/22
[2025-05-28 11:24] VITALS: BP 191/86; PULSE 106; TEMP 37; O2SAT 99
[2025-05-28 12:19] VITALS: BP 240/108; PULSE 102; PULSE 99; O2SAT 95; O2SAT 98
[2025-05-28 12:21] VITALS: BP 201/84
[2025-05-28] MEDS: LIDOCAINE HCL 2% 400 MG/20 ML MDV 15 ML INJ (12:21)
[2025-05-28] MEDS: BUPIVACAINE HCL 0.25% PF 25 MG/10 ML VIAL 5 ML INJ (12:21)
[2025-05-28] MEDS: METHYLPREDNISOLONE ACETATE 40 MG/ML VIAL IM (12:21)
[2025-05-28] MEDS: IOHEXOL 240 MG/ML - 10 ML VIAL INJ (12:21)
[2025-05-28] MEDS: METHYLPREDNISOLONE ACETATE 40 MG/ML VIAL INJ (12:21)
--- NOTE | 2025-05-28 12:21 | W.PM.PROCNOT ---
Date of procedure: 05/28/25 Pre-op diagnosis: Pain due to bilateral sacroiliitis Post-op diagnosis: same as pre-op Procedure: Procedure: Bilateral sacroiliac joint injection Medications: Bupivacaine 0.25% 4cc, depomedrol 40mg x2 After informed consent was obtained, the patient was brought to the medical procedure unit and placed in the prone position, when a timeout was completed verifying correct patient, procedure, site, positioning, implant, and/or special equipment.? The skin overlying the area was prepped and draped in standard sterile fashion using alcohol.? A 25-gauge needle was inserted towards the left sacroiliac joint under direct fluoroscopic imaging.? Needle tip was advanced until the joint was encountered.? We instilled a total of 2 mL of solution.? The same procedure was then completed on the right side.? Postoperatively needles were removed.? The patient tolerated the procedure well without complication.? The patient reported reduction in pain symptoms postoperatively. Anesthesia: Local Surgeon: Sigrid Fry Pathology: none sent Condition: stable Disposition: no change
== END 2025-05-28 12:30 | disposition home or self-care (01) ==
PROVIDERS: PCP Nurse Practitioner Family; Visit Provider Anesthesiology
DX: M46.1 Sacroiliitis, not elsewhere classified (principal); G89.29 Other chronic pain
CPT/HCPCS: 27096; J0665; J1010; Q9966

== ENCOUNTER 2025-06-04 12:49 | Outpatient (OUT) | payer OTHER, SELFPAY ==
--- OUTSIDE RECORDS SUMMARY | 2025-06-04 12:51 | XMS_ITS | Clinical Summary ---
Author Organization [facility] Address [address] [place] [address] Care Team Providers Care Harvest Supervisor Name Role Phone Thom Loredo MD Primary Care Provider [phone] Social History Tobacco UseTypesPacks/DayYears UsedDateSmoking Tobacco: Never Assessed CommentsUnknownSex and Gender InformationValueDate RecordedSex Assigned at Not on fileLegal NrpPpfwrf62/15/2023 8:28 PM EDTGender IdentityNot on fileSexual OrientationNot on file Last Filed Vital Signs Vital SignReadingTime TakenCommentsBlood Pressure--Pulse--Temperature-- Respiratory Rate--Oxygen Saturation--Inhaled Oxygen Concentration--Xwqevp95 kg (150 lb)03/23/2019 12:00 PM ORQKrxsxr111.6 cm (5' 4 )03/23/2019 12:00 PM EDTBody Mass Index25.75003/23/2019 12:00 PM EDT Plan of Treatment Not on file Care Teams Team MemberRelationshipSpecialtyStart DateEnd Date Thom Loredo MD [address] [facility] [address] [place] [address] PCP - GeneralFamily Medicine11/10/22
--- NOTE | 2025-06-04 13:49 | P.CN_ITS ---
Consult Note: HPI Data of Consult Patient: known to practice within the last 3 years Consult date: 06/04/25 Requesting Physician: Sigrid Fry MD Primary Care Provider: KARO WILSON Consult Narrative Reason for consult: low back, buttock pain Narrative: 74yof who presents for assessment. notes mild improvement after recent sij injection, still has significant buttock pain. imaging reviewed, significant for severe stenosis in lower lumbar spine with compression of s1 nerve roots. has continued in a series of provider directed home exercises >6 weeks, without benefit. uses flexeril as needed. cc:: CC: Sigrid Fry MD Review of Systems ROS Status of ROS 10 or more systems reviewed and unremark able except as noted in history and below Meds Home Medications and Allergies Home Medications ?Medication ?Instructions ?Recorded ?Confirmed ?Type cyclobenzaprine 10 mg tablet 10 mg PO TID PRN muscle s pasm #90 05/16/25 05/28/25 Rx tabs Allergies Allergy/AdvReac Type Severity Reaction Status Date / Time codeine Allergy Unknown Vomiting Verified 05/28/25 11:23 Exam Narrative Exam Narrative: Psych-alert and oriented x 3. Attentive and appropriate, constitutionally normal, displays normal mood and affect per situation. There are no obvious deficits in memory, reasoning, or intellect.? Skin-no obvious rashes, bruising, erythema noted to the patient's area of pain.? Extremities- extremities are warm with minimal edema and palpable pulses. Lumbar-tenderness to palpation noted in the lumbar spine and paraspinal m usculature. Pain is elicited with flexion, extension, and lateral rotation of the lumbar spine. Range of motion is diminished with these motions. Facet loading maneuvers are positive.? Strength-noted to be unremarkable Sensory-no notable sensory deficits in the bilateral lower extremities to touch or pinprick in all dermatomal distributions with the exception to decreased sensation to the bilateral S1 dermatomal distribution Coordination remains intact.? Gait remains non-antalgic. Assessment and Plan Assessment and Plan (1) Spinal stenosis, lumbar region without neurogenic claudication: Plan 74yof who presents for assessment. failed conservative measures, as noted. imaging reviewed, as noted. given her symptoms and imaging, discussed that i would like to see if a s1 nerve root block would provided some benefit, as her pain seems most prominent at the s1 foraminal area. she is in agreement. meds reviewed, no changes. follow up after procedure.
== END 2025-06-04 12:50 | disposition home or self-care (01) ==
LOC: PM 12:49
PROVIDERS: PCP Nurse Practitioner Family; Visit Provider Anesthesiology
DX: M48.062 Spinal stenosis, lumbar region with neurogenic claudication (principal)
CPT/HCPCS: G0463

== ENCOUNTER 2025-06-18 11:03 | Day surgery (SDC) | payer OTHER, SELFPAY ==
[2025-06-18 11:27] VITALS: BP 198/94; PULSE 99; TEMP 36.6; O2SAT 99
[2025-06-18 12:07] VITALS: PULSE 96; O2SAT 99
[2025-06-18 12:08] VITALS: BP 139/85; BP 156/87; PULSE 95; O2SAT 98
[2025-06-18] MEDS: 0.9 % SODIUM CHLORIDE 10 ML SYRINGE - SALINE FLUSH INJ (12:09)
[2025-06-18] MEDS: BUPIVACAINE HCL 0.25% PF 25 MG/10 ML VIAL INJ (12:09)
[2025-06-18] MEDS: LIDOCAINE HCL 2% 400 MG/20 ML MDV 3 ML INJ (12:10)
[2025-06-18] MEDS: METHYLPREDNISOLONE ACETATE 80 MG/ML VIAL INJ (12:10)
[2025-06-18] MEDS: IOHEXOL 240 MG/ML - 10 ML VIAL 24 MG INJ (12:10)
--- NOTE | 2025-06-18 12:17 | W.PM.PROCNOT ---
Date of procedure: 06/18/25 Pre-op diagnosis: Pain due to lumbar stenosis with neurogenic claudication Post-op diagnosis: same as pre-op Procedure: Procedure: Bilateral S1 selective nerve root block Medications: Bupivacaine 0.25% 2cc, lidocaine 2% 1cc, depomedrol 80mg The patient was seen and examined in the preoperative holding area.? Informed consent was obtained and placed on the chart.? Patient was brought to the medical procedure unit and placed in the prone position where a timeout was completed verifying the correct patient, procedure site, position, and planned special equipment using sterile aseptic technique.? Under direct fluoroscopic visualization a 25-gauge Quincke tipped spinal needle was advanced at level left S1-2 to the designated neural foramen where contrast dye was injected to show adequate spread.? There was no evidence of vascular or adverse uptake.? Epidural spread was appreciated.? The above-mentioned injectate was then placed in a 1.5 mL aliquot preceded by negative aspiration.? The needle was removed. The same procedure, at the same level, was completed on the opposite side. ? Patient was taken to the postprocedural recovery area and monitored for an appropriate length of time before found suitable for discharge in the accompaniment of a responsible adult. Anesthesia: Local Surgeon: Sigrid Fry Pathology: none sent Condition: stable Disposition: no change
== END 2025-06-18 12:17 | disposition home or self-care (01) ==
PROVIDERS: PCP Nurse Practitioner Family; Visit Provider Anesthesiology
DX: M48.062 Spinal stenosis, lumbar region with neurogenic claudication (principal); G89.29 Other chronic pain
CPT/HCPCS: 64483; J0665; J1010; Q9966

== ENCOUNTER 2025-07-02 13:34 | Outpatient (OUT) | payer OTHER, SELFPAY ==
--- OUTSIDE RECORDS SUMMARY | 2025-07-02 13:37 | XMS_ITS | Clinical Summary ---
Author Organization [facility] Address [address] [place] [address] Care Team Providers Care Meringuer Name Role Phone Thom Loredo MD Primary Care Provider [phone] Social History Tobacco UseTypesPacks/DayYears UsedDateSmoking Tobacco: Never Assessed CommentsUnknownSex and Gender InformationValueDate RecordedSex Assigned at Not on fileLegal XniKodxka22/15/2023 8:28 PM EDTGender IdentityNot on fileSexual OrientationNot on file Last Filed Vital Signs Vital SignReadingTime TakenCommentsBlood Pressure--Pulse--Temperature-- Respiratory Rate--Oxygen Saturation--Inhaled Oxygen Concentration--Hnsmga43 kg (150 lb)03/23/2019 12:00 PM KLBFumkxo682.6 cm (5' 4 )03/23/2019 12:00 PM EDTBody Mass Index25.75003/23/2019 12:00 PM EDT Plan of Treatment Not on file Care Teams Team MemberRelationshipSpecialtyStart DateEnd Date Thom Loredo MD [address] [facility] [address] [place] [address] PCP - GeneralFamily Medicine11/10/22
--- NOTE | 2025-07-02 14:20 | P.CN_ITS ---
Consult Note: HPI Data of Consult Patient: known to practice within the last 3 years Consult date: 07/02/25 Requesting Physician: Sigrid Fry MD Primary Care Provider: KARO WILSON Consult Narrative Reason for consult: low back pain Narrative: 74yof who presents for assessment. notes 50% improvement after recent bilateral S1 snrb. cc:: CC: Sigrid Fry MD Review of Systems ROS Status of ROS 10 or more systems reviewed and unremark able except as noted in history and below PFSH PFSH Medical History Osteoarthritis ?M19.90 - Unspecified osteoarthritis, unspecified site (ICD-10) Surgical History H/O knee surgery ?Z98.890 - Other specified postprocedural states (ICD-10) Meds Home Medications and Allergies Home Medications ?Medication ?Instructions ?Recorded ?Confirmed ?Type cyclobenzaprine 10 mg tablet 10 mg PO TID PRN muscle s pasm #90 05/16/25 06/18/25 Rx tabs Allergies Allergy/AdvReac Type Severity Reaction Status Date / Time codeine Allergy Unknown Vomiting Verified 06/18/25 11:29 Exam Narrative Exam Narrative: Psych-alert and oriented x 3. Attentive and appropriate, constitutionally normal, displays normal mood and affect per situation.? There are no obvious deficits in memory, reasoning, or intellect.? Skin-no obvious rashes, bruising, erythema noted to the patient's area of pain. Extremities- extremities are warm with minimal edema and palpable pulses. Lumbar-no significant tenderness to palpation noted in the lumbar spine and paraspinal musculature.? Pain is elicited with extension, and lateral rotation of the lumbar spine. Range of motion is slightly diminished with these motions due to pain. Coordination remains intact.? Gait remains non-antalgic. Assessment and Plan Assessment and Plan (1) Spinal stenosis, lumbar region without neurogenic claudication: Plan 74yof who presents for assessment. endorses >50% relief after recent bilateral S1 snrb. discussed that at some point, this pain may return, and could reassess at that point. she expressed understanding. meds reviewed, no changes. follow up as needed.
== END 2025-07-02 13:35 | disposition home or self-care (01) ==
LOC: PM 13:35
PROVIDERS: PCP Nurse Practitioner Family; Visit Provider Anesthesiology
DX: M48.061 Spinal stenosis, lumbar region without neurogenic claudication (principal)
CPT/HCPCS: G0463